=== PATIENT | female | born 1955 | race Caucasian/White ===

== ENCOUNTER → 2023-01-02 10:46 | Outpatient (BNVA) | payer MEDICARE, MEDICAID, SELFPAY | PROVIDERS: PCP Neuromusculoskeletal Medicine & OMM; Referring Provider Neuromusculoskeletal Medicine & OMM; Visit Provider Student in an Organized Health Care Education/Training Program | DX: J44.9 Chronic obstructive pulmonary disease, unspecified (principal); Z87.891 Personal history of nicotine dependence; R91.1 Solitary pulmonary nodule; J96.91 Respiratory failure, unspecified with hypoxia | CPT/HCPCS: 36415; 99214 ==

== ENCOUNTER 2023-01-02 16:57 | Outpatient (REF) | payer MEDICARE, MEDICAID, SELFPAY ==
[2023-01-02 17:28] LABS: Abs Immature Grans 0.02 10^3/uL (0.0-0.06); Absolute Basophil Count 0.04 10^3/uL (0.0-0.2); Absolute Eosinophil Count 0.07 10^3/uL (0.0-0.7); Absolute Lymphocyte Count 2.24 10^3/uL (1.2-3.4); Absolute Monocyte Count 0.81 10^3/uL (0.1-0.8); Absolute Neutrophil Count 5.65 10^3/uL (1.2-6.7); Basophils % 0.5; Eosinophils % 0.8; HCT 41.5 % (36.0-46.0); HGB 13.4 g/dL (11.2-15.7); Immature Grans % 0.2; Lymphocytes % 25.4; MCH 27.6 pg (27.0-33.0); MCHC 32.3 % (32.0-36.0); MCV 86 fL (80-95); MPV 9.2 fL (8.0-11.0); Monocytes % 9.2; Neutrophils % 63.9; Platelet Count 290 10^3/uL (130-400); RBC 4.85 10^6/uL (3.93-5.22); RDW 15.3 % (11.7-14.6); RDW-SD 48.1 fL; WBC 8.83 10^3/uL (4.4-10.8)
[2023-01-04 09:42] LABS: IgE 82 IU/mL (<158)
== END 2023-01-02 16:58 | disposition home or self-care (01) ==
LOC: LBN 16:57
PROVIDERS: PCP Neuromusculoskeletal Medicine & OMM; Visit Provider Student in an Organized Health Care Education/Training Program
DX: J44.9 Chronic obstructive pulmonary disease, unspecified (principal)
CPT/HCPCS: 82785; 85025

== ENCOUNTER 2023-01-16 01:52 | Outpatient (CLI) | payer MEDICARE, SELFPAY ==
[2023-01-16] MEDS: Inhaler, Assist Device 1 EACH MC (14:49)
[2023-01-16] MEDS: Levalbuterol HFA 15 GM INH 4 PUFF IH (14:49)
--- NOTE | 2023-01-31 07:47 | W.PFT ---
Date of service: 01/16/23 Time of Service: 10:29 Pulmonary Function Test Result Indications: Possible asthma with COPD Interpretation Spirometry: There is severe airflow limitation. There was a significant bronchodilator response. Impression Severe airflow obstruction with a significant bronchodilator response. Clinical Correlation therefore is recommended.
== END 2023-01-16 01:53 | disposition home or self-care (01) ==
LOC: RT 01:53
PROVIDERS: PCP Neuromusculoskeletal Medicine & OMM; Visit Provider Student in an Organized Health Care Education/Training Program
DX: J44.9 Chronic obstructive pulmonary disease, unspecified (principal)
CPT/HCPCS: 94060

== ENCOUNTER → 2023-04-05 09:37 | Outpatient (BNVA) | payer MEDICARE, SELFPAY | PROVIDERS: PCP Neuromusculoskeletal Medicine & OMM; Referring Provider Neuromusculoskeletal Medicine & OMM; Visit Provider Physician Assistant Surgical | DX: J44.9 Chronic obstructive pulmonary disease, unspecified (principal); J96.91 Respiratory failure, unspecified with hypoxia; R91.1 Solitary pulmonary nodule; Z87.891 Personal history of nicotine dependence | CPT/HCPCS: 99443 ==

== ENCOUNTER → 2023-07-06 10:52 | Outpatient (BNVA) | payer MEDICARE, SELFPAY | PROVIDERS: PCP Neuromusculoskeletal Medicine & OMM; Referring Provider Neuromusculoskeletal Medicine & OMM; Visit Provider Student in an Organized Health Care Education/Training Program | DX: J96.91 Respiratory failure, unspecified with hypoxia (principal); R91.1 Solitary pulmonary nodule; Z87.891 Personal history of nicotine dependence; J44.9 Chronic obstructive pulmonary disease, unspecified | CPT/HCPCS: 99443 ==

== ENCOUNTER → 2023-11-06 10:39 | Outpatient (BNVA) | payer MEDICARE, SELFPAY | PROVIDERS: PCP Neuromusculoskeletal Medicine & OMM; Referring Provider Neuromusculoskeletal Medicine & OMM; Visit Provider Physician Assistant Surgical | DX: J44.9 Chronic obstructive pulmonary disease, unspecified (principal); Z87.891 Personal history of nicotine dependence; R91.1 Solitary pulmonary nodule; J96.91 Respiratory failure, unspecified with hypoxia | CPT/HCPCS: 99214 ==

== ENCOUNTER → 2024-05-07 10:14 | Outpatient (BNVA) | payer MEDICARE, SELFPAY | PROVIDERS: PCP Neuromusculoskeletal Medicine & OMM; Referring Provider Neuromusculoskeletal Medicine & OMM; Visit Provider Physician Assistant Surgical | DX: J44.9 Chronic obstructive pulmonary disease, unspecified (principal); Z87.891 Personal history of nicotine dependence; R91.1 Solitary pulmonary nodule; J96.91 Respiratory failure, unspecified with hypoxia | CPT/HCPCS: 99214 ==

== ENCOUNTER → 2024-06-27 09:02 | Outpatient (BNVA) | payer MEDICARE, SELFPAY | PROVIDERS: PCP Neuromusculoskeletal Medicine & OMM; Referring Provider Neuromusculoskeletal Medicine & OMM; Visit Provider Physician Assistant Surgical | DX: J44.9 Chronic obstructive pulmonary disease, unspecified (principal); R91.1 Solitary pulmonary nodule; J96.91 Respiratory failure, unspecified with hypoxia; Z87.891 Personal history of nicotine dependence | CPT/HCPCS: 36415; 99214 ==

== ENCOUNTER 2024-06-27 10:58 | Outpatient (REF) | payer MEDICARE, SELFPAY ==
[2024-06-27 11:21] LABS: Abs Immature Grans 0.01 10^3/uL (0.0-0.06); Absolute Basophil Count 0.03 10^3/uL (0.0-0.2); Absolute Eosinophil Count 0.08 10^3/uL (0.0-0.7); Absolute Lymphocyte Count 1.97 10^3/uL (1.2-3.4); Absolute Neutrophil Count 3.87 10^3/uL (1.2-6.7); Basophils % 0.5 %; Eosinophils % 1.2 %; HCT 36.7 % (36.0-46.0); HGB 12.1 g/dL (11.2-15.7); Immature Grans % 0.2 %; Lymphocytes % 29.6 %; MCH 28.2 pg (27.0-33.0); MCV 86 fL (80-95); MPV 9.6 fL (8.0-11.0); Monocytes % 10.5 %; Platelet Count 230 10^3/uL (130-400); RBC 4.29 10^6/uL (3.93-5.22); RDW 16.1 % (11.7-14.6); RDW-SD 49.6 fL; WBC 6.66 10^3/uL (4.4-10.8)
[2024-06-28 10:23] LABS: IgE 42 IU/mL (<158)
== END 2024-06-27 10:59 | disposition home or self-care (01) ==
LOC: LBN 10:58
PROVIDERS: PCP Neuromusculoskeletal Medicine & OMM; Visit Provider Physician Assistant Surgical
DX: R91.1 Solitary pulmonary nodule (principal); J44.9 Chronic obstructive pulmonary disease, unspecified
CPT/HCPCS: 82785; 85025

== ENCOUNTER → 2024-12-31 10:42 | Outpatient (BNVA) | payer MEDICARE, SELFPAY | PROVIDERS: PCP Neuromusculoskeletal Medicine & OMM; Referring Provider Neuromusculoskeletal Medicine & OMM; Visit Provider Physician Assistant Surgical | DX: J44.9 Chronic obstructive pulmonary disease, unspecified (principal); J96.91 Respiratory failure, unspecified with hypoxia; Z87.891 Personal history of nicotine dependence; R91.1 Solitary pulmonary nodule | CPT/HCPCS: 99214 ==